=== PATIENT | male | born 1955 | race Caucasian/White ===

== ENCOUNTER 2024-12-01 10:47 | Inpatient (IN) | payer OTHER, MEDICARE ==
[~2024-12-01] VITALS: Ht 182.9 cm; Wt 134.9 kg
[2024-12-01 10:50] VITALS: O2SAT 97
[2024-12-01] MEDS: SODIUM CHLORIDE 0.9% (SEPSIS BOLUS) IV NR (11:28)
[2024-12-01] MEDS: PANTOPRAZOLE SODIUM 40 MG/VIAL IV SCH ×2 (11:32→13:51)
[2024-12-01] MEDS: PIPERACILLIN/TAZO 3.375G/50ML 50 ML IV NR (11:36)
[2024-12-01 11:43] LABS: CREATININE 3.2 mg/dL (0.6-1.3)
[2024-12-01 11:44] LABS: HEMATOCRIT. 40.2 % (42.0-52.0); HEMOGLOBIN. 12.5 g/dL (14.0-18.0); MEAN PLATELET VOLUME 9.4 fl (7.4-10.4); PLATELET 612 x1000/uL (130-400); RED BLOOD CELL COUNT 4.20 mill/uL (4.7-6.1); RED CELL DISTRIBUTION WIDTH 16.3 % (11.6-14.6)
[2024-12-01 11:45] LABS: ASPARTATE AMINOTRANSFERASE 93 IU/L (<34); BILIRUBIN DIRECT 0.3 mg/dL (<=3.0)
[2024-12-01 11:46] LABS: BILIRUBIN TOTAL 0.6 mg/dL (0.1-1.0); PROTEIN TOTAL 7.3 g/dL (6.0-8.3)
[2024-12-01 11:48] LABS: INR 1.3
[2024-12-01 11:53] LABS: UREA NITROGEN BLOOD 68 mg/dL (9-23)
[2024-12-01 12:12] LABS: BAND% 29.0 % (1.0-6.0); LYMPHOCYTES % MANUAL 2.0 % (20.0-50.0); METAMYELOCYTES % 1.0 % (0-0); MONOCYTES % MANUAL 3.0 % (2.0-8.0); NEUTROPHILS % MANUAL 65.0 % (45.0-75.0)
[2024-12-01 12:13] LABS: PLATELET ESTIMATE MARKEDLY INCREASED
[2024-12-01] MEDS ORDERED: IPRATROPIUM/ALBUTEROL 0.5-3(2.5)MG/3ML NEB HHN PRN (12:30)
[2024-12-01] MEDS ORDERED: INSULIN REGULAR 100U/100ML PMX 100 ML IV SCH ×2 (12:30→14:00)
[2024-12-01] MEDS ORDERED: SODIUM PHOSPHATE 15 MMOL in SODIUM CHLORIDE 0.9% 245 ML IV PRN (12:30)
[2024-12-01] MEDS ORDERED: ACETAMINOPHEN 325MG TABLET PO PRN (12:30)
[2024-12-01] MEDS ORDERED: DEXTROSE 50% WATER 50ML SYRINGE IV PRN ×3 (12:30)
[2024-12-01] MEDS ORDERED: BLOOD SUGAR DIAGNOSTIC STRIP TEST PRN (12:30)
[2024-12-01] MEDS: BLOOD SUGAR DIAGNOSTIC STRIP TEST SCH ×2 (12:30)
[2024-12-01] MEDS: VANCOMYCIN 2GM PMX (XELLIA) 400 ML IV NR (13:14)
[2024-12-01 13:47] LABS: BG BASE EXCESS -10.0 mmol/L (-2.0-3.0); BG CARBOXYHEMOGLOBIN 0.2 % (0.5-1.5); BG DEOXYHEMOGLOBIN 3.6 % (0.0-5.0); BG FRACTION INSPIRED OXYGEN 21; BG HCO3 ACT 13.1 mmol/L (21.0-28.0); BG METHEMOGLOBIN 0.3 % (0.5-1.5); BG OXYGEN SATURATION 96.4 % (94.0-98.0); BG OXYHEMOGLOBIN 95.9 % (94.0-98.0); BG PCO2 22.6 mmHg (35.0-48.0); BG PH 7.382 (7.350-7.450); BG PO2 85.5 mmHg (83.0-108.0); BG SAMPLE SITE RIGHT RADIAL; BG TOTAL HEMOGLOBIN 12.3 g/dL (13.5-17.5); BG VENT MODE ROOM AIR
[2024-12-01] MEDS: SODIUM CHLORIDE 0.9% 1,000 ML IV ONE (13:51)
[2024-12-01] MEDS: SODIUM CHLORIDE 0.9% 1,000 ML IV SCH (13:51)
[2024-12-01 13:53] LABS: CREATININE 2.9 mg/dL (0.6-1.3)
[2024-12-01 14:02] LABS: UREA NITROGEN BLOOD 104.0 mg/dL (9-23)
[2024-12-01] MEDS: INSULIN REGULAR 100U/100ML PMX 100 ML IV SCH (14:04)
[2024-12-01] MEDS: ENOXAPARIN 40MG/0.4ML SYR SUBCUT SCH (14:04)
[2024-12-01] MEDS: LORAZEPAM 0.5MG TABLET PO SCH (14:15)
[2024-12-01] MEDS: DEXT 5%/0.9% NACL 1,000 ML IV SCH (14:29)
[2024-12-01] MEDS: ENOXAPARIN 80MG/0.8ML SYR SUBCUT SCH (15:00)
[2024-12-01 16:19] LABS: CREATINE KINASE MB FRACTION 0.7 ng/mL (0.5-3.6)
[2024-12-01 16:21] LABS: FOLIC ACID (FOLATE) SERUM 7.47 ng/mL (>5.38); VITAMIN B12 SERUM 1223 pg/mL (211-911)
[2024-12-01 16:26] LABS: TROPONIN I HIGH SENSITIVITY 9 ng/L (3.0-53)
[2024-12-01] MEDS: POTASSIUM CHLORIDE 40 MEQ in SODIUM CHLORIDE 0.9% 230 ML IV PRN (16:26)
[2024-12-01 16:32] LABS: PHOSPHORUS 2.3 mg/dL (2.5-4.9)
[2024-12-01] MEDS ORDERED: POTASSIUM CHLORIDE 40 MEQ in DEXT 5% WATER 230 ML IV ONE (16:45)
[2024-12-01] MEDS: MAGNESIUM 2 G PREMIX 50 ML IV PRN (16:48)
[2024-12-01 16:54] LABS: HEPATITIS A AB IGM NEGATIVE (Negative)
[2024-12-01 16:55] LABS: HEPATITIS B CORE AB IGM NEGATIVE (Negative); HEPATITIS C AB NON REACTIVE (Neg) (Negative)
[2024-12-01] MEDS: MAGNESIUM 2 G PREMIX 50 ML IV SCH (17:11)
[2024-12-01] MEDS: POTASSIUM CHLORIDE 20MEQ TABLET SR PO SCH (17:11)
[2024-12-01] MEDS: KCL 20MEQ/100ML PREMIX 100 ML IV SCH (17:37)
[2024-12-01] MEDS: AMLODIPINE 10MG TABLET PO NR (17:51)
[2024-12-01 18:15] LABS: CLARITY URINE CLOUDY (CLEAR); COLOR URINE YELLOW (YELLOW); PH URINE 5.0 (4.5-8.0); PROTEIN URINE 3+ (NEGATIVE); SPECIFIC GRAVITY URINE 1.020 (1.005-1.030)
[2024-12-01 18:16] LABS: GLUCOSE URINE 2+ (NEGATIVE); KETONES URINE NEGATIVE (NEGATIVE); LEUKOCYTE ESTERASE URINE NEGATIVE (NEGATIVE); NITRITE URINE NEGATIVE (NEGATIVE); OCCULT BLOOD URINE TRACE (NEGATIVE); UROBILINOGEN URINE 1.0 E.U./dL (0.2-1.0)
[2024-12-01 18:25] LABS: BACTERIA URINE 3+; RBC URINE 0-2 /hpf (0-2); SQUAMOUS EPITHELIAL CELL URINE FEW /lpf (RARE/1+); WBC URINE 0-2 /hpf (0-2)
[2024-12-01 18:26] LABS: COARSE GRANULAR CASTS URINE 0-5 /lpf
[2024-12-01 18:42] LABS: *AMPHETAMINES SCREEN URINE NEGATIVE (NEGATIVE); *BARBITURATES SCREEN URINE NEGATIVE (NEGATIVE); *BENZODIAZEPINES SCREEN URINE NEGATIVE (NEGATIVE); *COCAINE SCREEN URINE NEGATIVE (NEGATIVE)
[2024-12-01 18:43] LABS: CANNABINOID URINE SCREEN NEGATIVE (NEGATIVE); ECSTASY MDMA SCREEN URINE NEGATIVE (NEGATIVE); METHADONE URINE SCREEN NEGATIVE (NEGATIVE); OPIATES URINE SCREEN NEGATIVE (NEGATIVE); PHENCYCLIDINE URINE SCREEN NEGATIVE (NEGATIVE)
[2024-12-01] MEDS: SODIUM BICARBONATE 8.4% 50MEQ/50ML SYR IV SCH (18:47)
[2024-12-01] MEDS: POTASSIUM CHLORIDE 40 MEQ in SODIUM CHLORIDE 0.9% 1,000 ML IV SCH (20:29)
[2024-12-01 21:31] LABS: INR 1.3
[2024-12-01 21:34] LABS: CREATINE KINASE MB FRACTION 1.3 ng/mL (0.5-3.6)
[2024-12-01 21:42] LABS: PHOSPHORUS 3.8 mg/dL (2.5-4.9)
[2024-12-01] MEDS ORDERED: PIPERACILLIN/TAZO 3.375G/50ML 50 ML IV SCH (22:00)
[2024-12-01] MEDS: PIPERACILLIN/TAZO 3.375G/50ML 50 ML IV SCH (22:00)
[2024-12-01 22:07] LABS: TROPONIN I HIGH SENSITIVITY 26 ng/L (3.0-53)
[2024-12-01] MEDS: HYDRALAZINE HCL 50MG TABLET PO SCH (22:51)
[2024-12-01] MEDS: HYDROCODONE/ACETAMINOPHEN 5/325MG TABLET PO PRN (23:29)
[2024-12-02] VITALS (85 sets, daily range): BP systolic 109–187; BP diastolic 42–108; PULSE 69–89; RESP 15–33; TEMP 36.8–36.974; O2SAT 85–100
[2024-12-02 02:38] LABS: PHOSPHORUS 3.3 mg/dL (2.5-4.9)
[2024-12-02 05:57] LABS: HEMATOCRIT. 35.3 % (42.0-52.0); HEMOGLOBIN. 11.7 g/dL (14.0-18.0); MEAN PLATELET VOLUME 8.7 fl (7.4-10.4); PLATELET 579 x1000/uL (130-400); RED BLOOD CELL COUNT 3.92 mill/uL (4.7-6.1); RED CELL DISTRIBUTION WIDTH 15.1 % (11.6-14.6)
[2024-12-02 06:32] LABS: CREATININE 2.8 mg/dL (0.6-1.3); TRIGLYCERIDE 168 mg/dL (0-150); UREA NITROGEN BLOOD 92 mg/dL (9-23)
[2024-12-02 06:33] LABS: LDL CHOLESTEROL 46 mg/dL (5-100)
[2024-12-02 06:34] LABS: PHOSPHORUS 3.5 mg/dL (2.5-4.9)
[2024-12-02 06:36] LABS: T4 FREE 1.07 ng/dL (0.89-1.76)
[2024-12-02 06:57] LABS: ERYTHROCYTE SEDIMENTATION RATE 97 mm/hr (0-20)
[2024-12-02] MEDS ORDERED: POLYMYXIN B SULFATE 500000 UNITS/VIAL ONE (07:12)
[2024-12-02] MEDS ORDERED: LIDOCAINE HCL 1% 10 MG/ML 10ML VIAL ONE ×3 (07:12→10:02)
[2024-12-02] MEDS ORDERED: BUPIVACAINE HCL/PF 0.5% (5MG/ML) 10ML ONE (07:12)
[2024-12-02] MEDS: AMLODIPINE 10MG TABLET PO SCH (08:27)
[2024-12-02] MEDS: KCL 20MEQ/100ML PREMIX 100 ML IV PRN (08:28)
[2024-12-02] MEDS ORDERED: PROPOFOL 200MG/20ML VIAL IV ONE (09:53)
[2024-12-02] MEDS ORDERED: ACETAMINOPHEN 1,000MG/100ML PREMIX IV PRN (10:45)
[2024-12-02] MEDS ORDERED: ONDANSETRON HCL 4MG/2ML INJ IV PRN (10:45)
[2024-12-02] MEDS ORDERED: LABETALOL 5MG/ML 4ML INJ IV PRN (10:45)
[2024-12-02] MEDS ORDERED: NALOXONE HCL 0.4MG/ML VIAL IV PRN (10:45)
[2024-12-02] MEDS ORDERED: HYDRALAZINE 20MG/ML VIAL IV PRN ×2 (10:45)
[2024-12-02] MEDS ORDERED: FAMOTIDINE 20MG/2ML VIAL IV PRN (10:45)
[2024-12-02] MEDS ORDERED: MEPERIDINE HCL/PF 25MG/ML CPJ IV PRN (10:45)
[2024-12-02] MEDS: HYDROMORPHONE HCL/PF 1MG/ML INJ IV PRN (10:56)
[2024-12-02] MEDS: ENOXAPARIN 120MG/0.8ML SYR SUBCUT SCH (15:26)
[2024-12-02] MEDS ORDERED: CLINDAMYCIN 900 MG in DEXTROSE 5% WATER 50 ML IV SCH (15:45)
[2024-12-02 17:09] LABS: BAND% 10.0 % (1.0-6.0); LYMPHOCYTES % MANUAL 6.0 % (20.0-50.0); MONOCYTES % MANUAL 7.0 % (2.0-8.0); NEUTROPHILS % MANUAL 77.0 % (45.0-75.0)
[2024-12-02 17:10] LABS: PLATELET ESTIMATE INCREASED
[2024-12-02] MEDS: CLINDAMYCIN 900MG PREMIX 50 ML IV SCH (18:04)
[2024-12-02] MEDS: CLONIDINE 0.1MG TABLET PO PRN (18:59)
[2024-12-02 20:40] LABS: CREATININE 2.7 mg/dL (0.6-1.3)
[2024-12-02 20:41] LABS: UREA NITROGEN BLOOD 89 mg/dL (9-23)
[2024-12-02] MEDS: VANCOMYCIN 1.25GM/250ML IV SCH (20:41)
[2024-12-02 20:43] LABS: PHOSPHORUS 3.9 mg/dL (2.5-4.9)
[2024-12-03] VITALS (83 sets, daily range): BP systolic 121–176; BP diastolic 57–125; PULSE 65–92; RESP 16–31; TEMP 36.3–38.5; O2SAT 92–100
[2024-12-03 01:45] LABS: CREATININE 2.6 mg/dL (0.6-1.3); UREA NITROGEN BLOOD 85 mg/dL (9-23)
[2024-12-03 01:47] LABS: PHOSPHORUS 3.9 mg/dL (2.5-4.9)
[2024-12-03 11:06] LABS: PLATELET 486 x1000/uL (130-400); RED BLOOD CELL COUNT 3.40 mill/uL (4.7-6.1); RED CELL DISTRIBUTION WIDTH 16.0 % (11.6-14.6)
[2024-12-03 11:16] LABS: CREATININE 2.5 mg/dL (0.6-1.3)
[2024-12-03 11:17] LABS: UREA NITROGEN BLOOD 76 mg/dL (9-23)
[2024-12-03 11:19] LABS: PHOSPHORUS 3.4 mg/dL (2.5-4.9)
[2024-12-03] MEDS ORDERED: BUPIVACAINE HCL/PF 0.5% (5MG/ML) 10ML ONE (12:14)
[2024-12-03] MEDS ORDERED: LIDOCAINE HCL 1% 10 MG/ML 10ML VIAL ONE (12:14)
[2024-12-03] MEDS ORDERED: NICARDIPINE 40MG/200ML PREMIX 200 ML IV ONE (12:14)
[2024-12-03] MEDS ORDERED: POLYMYXIN B SULFATE 500000 UNITS/VIAL ONE (12:14)
[2024-12-03] MEDS ORDERED: DEXMEDETOMIDINE 250 ML IV ONE (12:14)
[2024-12-03] MEDS: MORPHINE SULFATE 10 MG/ML INJ (NOT FOR IM USE) IV PRN (12:17)
[2024-12-03] MEDS ORDERED: PROPOFOL 200MG/20ML VIAL IV ONE (17:43)
[2024-12-03] MEDS ORDERED: ETOMIDATE 2MG/ML 10ML VIAL IV ONE (17:43)
[2024-12-03] MEDS ORDERED: ACETAMINOPHEN 1000MG/100ML 100 ML IV ONE (17:47)
[2024-12-03] MEDS: ACETAMINOPHEN 1000MG/100ML 100 ML IV NR (18:30)
[2024-12-03] MEDS ORDERED: ROCURONIUM BROMIDE 10MG/ML VIAL 5ML IV ONE (19:12)
[2024-12-03] MEDS ORDERED: FENTANYL CITRATE/PF 50MCG/ML 2ML VIAL ONE (19:14)
[2024-12-03 19:36] LABS: CREATININE 2.4 mg/dL (0.6-1.3); UREA NITROGEN BLOOD 61 mg/dL (9-23)
[2024-12-03 19:38] LABS: PHOSPHORUS 3.5 mg/dL (2.5-4.9)
[2024-12-03] MEDS ORDERED: ONDANSETRON HCL 4MG/2ML INJ ONE (20:01)
[2024-12-03] MEDS ORDERED: ONDANSETRON HCL 4MG/2ML INJ IV PRN (21:15)
[2024-12-03] MEDS: HYDROMORPHONE HCL/PF 1MG/ML INJ IV PRN (22:10)
[2024-12-03 22:34] LABS: BG BASE EXCESS -11.5 mmol/L (-2.0-3.0); BG CARBOXYHEMOGLOBIN 0.9 % (0.5-1.5); BG DEOXYHEMOGLOBIN 0.9 % (0.0-5.0); BG FLOW(L/min) 6.00 L/min; BG FRACTION INSPIRED OXYGEN 60; BG HCO3 ACT 13.2 mmol/L (21.0-28.0); BG METHEMOGLOBIN 0.2 % (0.5-1.5); BG OXYGEN SATURATION 99.1 % (94.0-98.0); BG OXYHEMOGLOBIN 98.0 % (94.0-98.0); BG PCO2 26.8 mmHg (35.0-48.0); BG PH 7.309 (7.350-7.450); BG PO2 144.3 mmHg (83.0-108.0); BG SAMPLE SITE RIGHT RADIAL; BG TOTAL HEMOGLOBIN 12.2 g/dL (13.5-17.5); BG VENT MODE MASK - SIMPLE
[2024-12-03] MEDS: SODIUM BICARBONATE 8.4% 50MEQ/50ML SYR IV NR (23:19)
[2024-12-04] VITALS (96 sets, daily range): BP systolic 104–178; BP diastolic 42–105; PULSE 68–96; RESP 12–27; TEMP 36.7–36.8; O2SAT 92–97
[2024-12-04 00:05] LABS: CREATININE 2.3 mg/dL (0.6-1.3)
[2024-12-04 00:06] LABS: UREA NITROGEN BLOOD 72 mg/dL (9-23)
[2024-12-04 00:08] LABS: PHOSPHORUS 4.4 mg/dL (2.5-4.9)
[2024-12-04 02:53] LABS: PLATELET 481 x1000/uL (130-400); RED BLOOD CELL COUNT 3.24 mill/uL (4.7-6.1); RED CELL DISTRIBUTION WIDTH 16.2 % (11.6-14.6)
[2024-12-04 03:21] LABS: CREATININE 2.3 mg/dL (0.6-1.3); UREA NITROGEN BLOOD 71 mg/dL (9-23)
[2024-12-04 03:23] LABS: PHOSPHORUS 4.2 mg/dL (2.5-4.9)
[2024-12-04 05:44] LABS: PLATELET 490 x1000/uL (130-400); RED BLOOD CELL COUNT 3.14 mill/uL (4.7-6.1); RED CELL DISTRIBUTION WIDTH 16.5 % (11.6-14.6)
[2024-12-04 05:51] LABS: CREATININE 2.3 mg/dL (0.6-1.3)
[2024-12-04 05:52] LABS: CREATININE 2.4 mg/dL (0.6-1.3); UREA NITROGEN BLOOD 67 mg/dL (9-23)
[2024-12-04 05:53] LABS: UREA NITROGEN BLOOD 66.0 mg/dL (9-23)
[2024-12-04 05:54] LABS: PHOSPHORUS 4.2 mg/dL (2.5-4.9)
[2024-12-04 11:18] LABS: CREATININE 2.3 mg/dL (0.6-1.3); UREA NITROGEN BLOOD 61 mg/dL (9-23)
[2024-12-04 11:20] LABS: PHOSPHORUS 3.4 mg/dL (2.5-4.9)
[2024-12-04] MEDS: DEXT 5%/0.9% NACL 1,000 ML IV SCH (13:36)
[2024-12-04 15:05] LABS: CREATININE 2.3 mg/dL (0.6-1.3); UREA NITROGEN BLOOD 58 mg/dL (9-23)
[2024-12-04 15:08] LABS: PHOSPHORUS 3.3 mg/dL (2.5-4.9)
[2024-12-04] MEDS: MORPHINE SULFATE 4 MG/ML INJ (FOR IV/IM USE) IV PRN (15:46)
[2024-12-04] MEDS: VANCOMYCIN 1GM/200ML PMX (BAXTER) IV SCH (15:55)
[2024-12-04] MEDS ORDERED: POTASSIUM CHLORIDE 40 MEQ in SODIUM CHLORIDE 0.9% 230 ML IV PRN (16:30)
[2024-12-04] MEDS: KCL 20MEQ/100ML PREMIX 100 ML IV PRN (16:57)
[2024-12-04 19:22] LABS: CREATININE 2.2 mg/dL (0.6-1.3); UREA NITROGEN BLOOD 56 mg/dL (9-23)
[2024-12-04 19:24] LABS: PHOSPHORUS 3.5 mg/dL (2.5-4.9)
[2024-12-05] VITALS (88 sets, daily range): BP systolic 99–184; BP diastolic 69–104; PULSE 66–91; RESP 11–34; TEMP 36.6–36.8; O2SAT 88–100
[2024-12-05 06:32] LABS: CREATININE 2.2 mg/dL (0.6-1.3); UREA NITROGEN BLOOD 50.0 mg/dL (9-23)
[2024-12-05 06:35] LABS: HEMATOCRIT. 28.3 % (42.0-52.0); HEMOGLOBIN. 9.1 g/dL (14.0-18.0); MEAN PLATELET VOLUME 8.4 fl (7.4-10.4); PLATELET 485 x1000/uL (130-400); RED BLOOD CELL COUNT 3.10 mill/uL (4.7-6.1); RED CELL DISTRIBUTION WIDTH 16.8 % (11.6-14.6)
[2024-12-05] MEDS ORDERED: KCL 20MEQ/100ML PREMIX 100 ML IV PRN (07:45)
[2024-12-05] MEDS: DEXT 5%/0.9% NACL 1,000 ML IV SCH (09:09)
[2024-12-05 10:18] LABS: CREATININE 2.2 mg/dL (0.6-1.3); UREA NITROGEN BLOOD 47 mg/dL (9-23)
[2024-12-05 10:21] LABS: PHOSPHORUS 3.3 mg/dL (2.5-4.9)
[2024-12-05] MEDS: BLOOD SUGAR DIAGNOSTIC STRIP TEST SCH (11:30)
[2024-12-05] MEDS: INSULIN GLARGINE 100 UNITS/ML SUBCUT SCH (11:48)
[2024-12-05] MEDS ORDERED: INSULIN LISPRO 100 UNITS/ML SUBCUT SCH ×2 (12:00)
[2024-12-05] MEDS: HYDRALAZINE HCL 50MG TABLET PO SCH (13:08)
[2024-12-05] MEDS: ACETAMINOPHEN 325MG TABLET PO PRN (13:13)
[2024-12-05 15:51] LABS: BAND% 6.0 % (1.0-6.0); LYMPHOCYTES % MANUAL 14.0 % (20.0-50.0); METAMYELOCYTES % 2.0 % (0-0); MONOCYTES % MANUAL 8.0 % (2.0-8.0); MYELOCYTES % 2.0 % (0-0); NEUTROPHILS % MANUAL 68.0 % (45.0-75.0); PLATELET ESTIMATE INCREASED
[2024-12-05] MEDS: INSULIN LISPRO 100 UNITS/ML SUBCUT SCH ×2 (17:29→17:30)
[2024-12-06] VITALS (48 sets, daily range): BP systolic 138–187; BP diastolic 72–100; PULSE 62–90; RESP 13–32; TEMP 36.1–36.7; O2SAT 93–100
[2024-12-06] MEDS: HYDRALAZINE 20MG/ML VIAL IV NR (04:14)
[2024-12-06 12:01] LABS: PLATELET 592 x1000/uL (130-400); RED BLOOD CELL COUNT 3.22 mill/uL (4.7-6.1); RED CELL DISTRIBUTION WIDTH 17.3 % (11.6-14.6)
[2024-12-06 12:26] LABS: CREATININE 2.0 mg/dL (0.6-1.3)
[2024-12-06 12:27] LABS: UREA NITROGEN BLOOD 33.0 mg/dL (9-23)
[2024-12-06] MEDS: PIPERACILLIN/TAZO 3.375G/50ML 50 ML IV SCH (15:37)
[2024-12-06] MEDS: HYDRALAZINE HCL 100MG TABLET PO SCH (16:06)
[2024-12-07] MEDS: ONDANSETRON HCL 4MG/2ML INJ IV PRN (05:12)
[2024-12-07 07:45] LABS: CREATININE 1.9 mg/dL (0.6-1.3); UREA NITROGEN BLOOD 30.0 mg/dL (9-23)
[2024-12-07 08:00] VITALS: BP_SYST 157; BP_SYST 168; BP_DIAS 73; BP_DIAS 77; PULSE 80; PULSE 85; RESP 17; RESP 18; TEMP 35.9; TEMP 36.1; O2SAT 97; O2SAT 98
[2024-12-07 08:14] LABS: MEAN PLATELET VOLUME 8.6 fl (7.4-10.4); PLATELET 641 x1000/uL (130-400); RED BLOOD CELL COUNT 3.59 mill/uL (4.7-6.1); RED CELL DISTRIBUTION WIDTH 16.5 % (11.6-14.6)
[2024-12-07 08:24] LABS: HEMOGLOBIN. 10.5 g/dL (14.0-18.0)
[2024-12-07 08:25] LABS: HEMATOCRIT. 32.3 % (42.0-52.0)
[2024-12-07 12:00] VITALS: BP 152/60; PULSE 88; RESP 18; TEMP 36.1; O2SAT 98
[2024-12-07] MEDS: FUROSEMIDE 20MG/2ML VIAL IVP SCH (13:54)
[2024-12-07 16:00] VITALS: BP 156/54; PULSE 73; RESP 16; TEMP 36; O2SAT 97
[2024-12-07 20:00] VITALS: BP 147/70; PULSE 88; RESP 18; TEMP 36.6; O2SAT 99
[2024-12-07 21:18] LABS: BAND% 5.0 % (1.0-6.0); METAMYELOCYTES % 2.0 % (0-0); MONOCYTES % MANUAL 9.0 % (2.0-8.0); MYELOCYTES % 3.0 % (0-0); NEUTROPHILS % MANUAL 81.0 % (45.0-75.0); PLATELET ESTIMATE NORMAL
[2024-12-08] VITALS: BP 137/69; PULSE 79; RESP 19; TEMP 36.6; O2SAT 100
[2024-12-08 04:00] VITALS: BP 164/73; PULSE 88; RESP 18; TEMP 36; O2SAT 99
[2024-12-08 08:00] VITALS: BP 172/86; PULSE 78; RESP 18; TEMP 36.3; O2SAT 98
[2024-12-08 12:00] VITALS: BP 170/84; PULSE 69; RESP 18; TEMP 36.2; O2SAT 98
[2024-12-08] MEDS: FUROSEMIDE 40MG/4ML VIAL IVP SCH (12:00)
[2024-12-08 13:43] LABS: PLATELET 668 x1000/uL (130-400); RED BLOOD CELL COUNT 3.54 mill/uL (4.7-6.1); RED CELL DISTRIBUTION WIDTH 16.1 % (11.6-14.6)
[2024-12-08 14:03] LABS: CREATININE 1.8 mg/dL (0.6-1.3)
[2024-12-08 14:06] LABS: UREA NITROGEN BLOOD 28.0 mg/dL (9-23)
[2024-12-08] MEDS: GABAPENTIN 100MG CAPSULE PO SCH (14:34)
[2024-12-08 16:00] VITALS: BP 154/80; PULSE 88; RESP 18; TEMP 36.3; O2SAT 98
[2024-12-08 20:00] VITALS: BP 146/62; PULSE 84; RESP 19; TEMP 36.6; O2SAT 97
[2024-12-08] MEDS: MELATONIN 3MG TABLET PO SCH (21:00)
[2024-12-08] MEDS: DULOXETINE HCL 20MG DR CAPSULE PO SCH (21:52)
[2024-12-09] VITALS: BP 156/65; PULSE 84; RESP 20; TEMP 36.6; O2SAT 96
[2024-12-09 04:00] VITALS: BP 171/90; PULSE 84; RESP 19; TEMP 36.5; O2SAT 98
[2024-12-09] MEDS ORDERED: HYDROCODONE/ACETAMINOPHEN 5/325MG TABLET PO NR (05:15)
[2024-12-09 08:00] VITALS: BP 97/67; PULSE 82; RESP 18; TEMP 36.5; O2SAT 98
[2024-12-09 08:52] LABS: CREATININE 1.7 mg/dL (0.6-1.3); UREA NITROGEN BLOOD 25.0 mg/dL (9-23)
[2024-12-09 09:20] LABS: PLATELET 582 x1000/uL (130-400); RED BLOOD CELL COUNT 3.26 mill/uL (4.7-6.1); RED CELL DISTRIBUTION WIDTH 16.5 % (11.6-14.6)
[2024-12-09 12:00] VITALS: BP 151/67; PULSE 80; RESP 18; TEMP 36.7; O2SAT 98
[2024-12-09] MEDS: LACTOBACILLUS RHAMNOSUS GG CAP PO SCH (12:44)
[2024-12-09 16:00] VITALS: BP 155/77; PULSE 89; RESP 18; TEMP 36.3; O2SAT 98
[2024-12-09] MEDS: MORPHINE SULFATE 4 MG/ML INJ (FOR IV/IM USE) IV SCH (17:48)
[2024-12-09 20:00] VITALS: BP 153/81; PULSE 89; RESP 20; TEMP 36.2; O2SAT 97
[2024-12-09] MEDS: MORPHINE SULFATE 4 MG/ML INJ (FOR IV/IM USE) IV NR (23:27)
[2024-12-10] VITALS: BP 157/93; PULSE 77; RESP 22; TEMP 36.3; O2SAT 100
[2024-12-10 04:00] VITALS: BP 163/94; PULSE 94; RESP 22; TEMP 36.4; O2SAT 98
[2024-12-10 08:00] VITALS: BP 138/59; PULSE 86; RESP 18; TEMP 36.4; O2SAT 95
[2024-12-10 11:36] LABS: PLATELET 568 x1000/uL (130-400); RED BLOOD CELL COUNT 2.80 mill/uL (4.7-6.1); RED CELL DISTRIBUTION WIDTH 16.1 % (11.6-14.6)
[2024-12-10 11:59] LABS: CREATININE 1.8 mg/dL (0.6-1.3); UREA NITROGEN BLOOD 22 mg/dL (9-23)
[2024-12-10 12:00] VITALS: BP 122/58; PULSE 79; RESP 18; TEMP 36.6; O2SAT 96
[2024-12-10] MEDS: DIPHENHYDRAMINE 50MG CAPSULE PO PRN (14:38)
[2024-12-10 16:00] VITALS: BP 125/56; PULSE 76; RESP 17; TEMP 36.6; O2SAT 96
[2024-12-10 20:00] VITALS: BP 126/59; PULSE 78; RESP 19; TEMP 36.2; O2SAT 96
[2024-12-11] VITALS (7 sets, daily range): BP systolic 114–143; BP diastolic 53–75; PULSE 71–84; RESP 18–20; TEMP 36.1–36.7; O2SAT 95–98
[2024-12-11] MEDS: SODIUM HYPOCHLORITE 0.125% 473ML SOLUTION TOP SCH (13:53)
[2024-12-11] MEDS ORDERED: AMOX1TAB16 PO ×2 (14:46→15:11)
== END 2024-12-11 18:35 | DRG 853 ==
LOC: ER 10:47 → MICUNO 12:16 → EDBEDREQTM 12:17 → EDBEDREQ 12:17 → EDBEDREQSVC 13:44 → ENRESERV 23:51 → 6WST 12-06 12:00
PROVIDERS: ADMIT Internal Medicine; ATTEND Internal Medicine
PROC: 0H9NXZZ Drainage of Left Foot Skin, External Approach (ICD-10-PCS; principal; 2024-12-01)
PROC: 0Y6J0Z1 Detachment at Left Lower Leg, High, Open Approach (ICD-10-PCS; 2024-12-03)
PROC: 0JBR0ZZ Excision of Left Foot Subcutaneous Tissue and Fascia, Open Approach (ICD-10-PCS; 2024-12-07)
DX: A41.01 Sepsis due to Methicillin susceptible Staphylococcus aureus (principal); A48.0 Gas gangrene; E11.10 Type 2 diabetes mellitus with ketoacidosis without coma; M72.6 Necrotizing fasciitis; G92.8 Other toxic encephalopathy; N17.0 Acute kidney failure with tubular necrosis; E11.52 Type 2 diabetes mellitus with diabetic peripheral angiopathy with gangrene; L03.116 Cellulitis of left lower limb; Z68.41 Body mass index [BMI] 40.0-44.9, adult; D62 Acute posthemorrhagic anemia; D68.9 Coagulation defect, unspecified; A41.59 Other Gram-negative sepsis; E66.9 Obesity, unspecified; A41.89 Other specified sepsis; D75.839 Thrombocytosis, unspecified; N18.9 Chronic kidney disease, unspecified; F32.9 Major depressive disorder, single episode, unspecified; E11.22 Type 2 diabetes mellitus with diabetic chronic kidney disease; I12.9 Hypertensive chronic kidney disease with stage 1 through stage 4 chronic kidney disease, or unspecified chronic kidney disease; F41.9 Anxiety disorder, unspecified; G47.00 Insomnia, unspecified; S90.821A Blister (nonthermal), right foot, initial encounter; E11.21 Type 2 diabetes mellitus with diabetic nephropathy; I48.91 Unspecified atrial fibrillation; E78.1 Pure hyperglyceridemia; Z79.899 Other long term (current) drug therapy; Z79.01 Long term (current) use of anticoagulants; Z79.4 Long term (current) use of insulin; Z91.148 Patient's other noncompliance with medication regimen for other reason
CPT/HCPCS: 36415; 36600; 71045; 73630; 73700; 80048; 80051; 80061; 80076; 80202; 80305; 81003; 82010; 82140; 82375; 82550; 82553; 82607; 82746; 82805; 82962; 83036; 83605; 83735; 83930; 84100; 84145; 84439; 84443; 84484; 85025; 85027; 85651; 86705; 86709; 86850; 86900; 87070; 87075; 87077; 87186; 87340; 88307; 88311; 93005; 93923; 93970; 96365; 96375; 97110; 97162; 97166; 97530; 99291; A4606; A6261; J0360; J0665; J1171; J1650; J1815; J1938; J2003; J2270; J2405; J2470; J2543; J2704; J3010; J3373; J3475; J3480; J3490; J7030; J7042; J7120; Q0163; J0131